=== PATIENT | female | born 1985 | race Caucasian/White ===

== ENCOUNTER 2019-04-21 22:55 | Emergency (ER) | payer OTHER ==
[2019-04-22] MEDS: ONDANSETRON (ODT) 4 MG TAB ODT (00:10)
== END 2019-04-22 00:36 | disposition home or self-care (01) ==
LOC: E/R 22:55
DX: R11.2 Nausea with vomiting, unspecified (principal); T51.91XA Toxic effect of unspecified alcohol, accidental (unintentional), initial encounter
CPT/HCPCS: 99283; Z7502